=== PATIENT | female | born 1935 | race Caucasian/White ===

== ENCOUNTER 2020-08-30 20:06 | Inpatient (IN) | payer MEDICARE, OTHER ==
[~2020-08-30] VITALS: Ht 170.2 cm; Wt 80.3 kg
[2020-08-31] MEDS ORDERED: TRAMADOL HCL50 MG PO (01:15)
[2020-08-31] MEDS ORDERED: ZYLOPRIM 100 M100 MG PO (01:16)
[2020-08-31] MEDS ORDERED: CLOPIDOGREL75 MG PO (01:18)
[2020-08-31] MEDS ORDERED: VITAMIN D21250 MCG PO (01:20)
[2020-08-31] MEDS ORDERED: FUROSEMIDE40 MG PO (01:20)
[2020-08-31] MEDS ORDERED: ATORVASTATIN CA40 MG PO (01:21)
[2020-08-31] MEDS ORDERED: SYNTHROID100 MCG PO (01:21)
[2020-08-31] MEDS ORDERED: COZAAR 50MG TAB50 MG GT (01:23)
[2020-08-31] MEDS ORDERED: XARELTO15 PACK PO (01:27)
[2020-08-31] MEDS ORDERED: ADVAIR 100-501 EACH INH (01:27)
[2020-08-31] MEDS ORDERED: GABAPENTIN100 MG PO (01:29)
[2020-08-31] MEDS ORDERED: DILTIAZEM ER180 M1 PO (01:31)
[2020-08-31] MEDS ORDERED: K-DUR TAB 20 M20 MEQ PO (01:32)
[2020-08-31 05:23] LABS: HEMOGLOBIN 10.4 gm/dl (12.3-15.3); RED BLOOD COUNT 3.96 M/UL (4.00-5.10); WHITE BLOOD COUNT 8.7 K/UL (4.5-11.0)
[2020-09-02 04:27] LABS: HEMOGLOBIN 10.6 gm/dl (12.3-15.3); RED BLOOD COUNT 3.97 M/UL (4.00-5.10)
[2020-09-02] MEDS ORDERED: XARELTO15 PACK PO (12:21)
== END 2020-09-02 20:21 | disposition home or self-care (01) | DRG 511 ==
LOC: M/S 08-31 00:17
PROVIDERS: Internal Medicine; Orthopaedic Surgery; Physician Assistant; ADMIT Internal Medicine Infectious Disease
PROC: 0PSH04Z Reposition Right Radius with Internal Fixation Device, Open Approach (ICD-10-PCS; principal; 2020-09-01 14:15)
DX: S52.571A Other intraarticular fracture of lower end of right radius, initial encounter for closed fracture (principal); N17.9 Acute kidney failure, unspecified; W18.39XA Other fall on same level, initial encounter; I48.91 Unspecified atrial fibrillation; S52.611A Displaced fracture of right ulna styloid process, initial encounter for closed fracture; I25.10 Atherosclerotic heart disease of native coronary artery without angina pectoris; E03.9 Hypothyroidism, unspecified; E78.5 Hyperlipidemia, unspecified; I10 Essential (primary) hypertension; D53.9 Nutritional anemia, unspecified; M10.9 Gout, unspecified; Y93.9 Activity, unspecified; Y92.89 Other specified places as the place of occurrence of the external cause; Z79.01 Long term (current) use of anticoagulants; Z95.2 Presence of prosthetic heart valve; Z86.711 Personal history of pulmonary embolism; Z90.710 Acquired absence of both cervix and uterus; Z90.49 Acquired absence of other specified parts of digestive tract; Z83.3 Family history of diabetes mellitus
CPT/HCPCS: ECHO; 36415; 73100; 76000; 80048; 80053; 83735; 85025; 85652; 86140; 86850; 86870; 86900; 86901; 86902; 86920; 86922; 93005; 93306; 94640; 94664; 94760; C1713; J0690; J1100; J1170; J2001; J2270; J2405; J2704; J2795; J7120